=== PATIENT | male | born 1940 | race Two or more races ===

== ENCOUNTER 2024-03-05 05:30 | Inpatient (IN) | payer OTHER ==
[~2024-03-05] VITALS: Ht 160 cm; Wt 45.4 kg
[~2024-03-05 05:30] MED LIST: ACID CONTROL20 MG; DIOVAN40 MG; NORVASC10 MG; PROTONIX40 MG
[2024-03-05] MEDS ORDERED: NORVASC5 MG PO (05:34)
[2024-03-05] MEDS ORDERED: COZAAR100 MG PO (05:34)
[2024-03-05] MEDS ORDERED: FAMOTIDINE/PF 20 MG/2 ML VIAL IV PUSH STA (05:46)
[2024-03-05] MEDS ORDERED: 0.9 % SODIUM CHLORIDE 500 ML IV ONE (06:00)
[2024-03-05 06:46] LABS: HEMATOCRIT 34.3 % (39.0-48.0); MEAN CELL VOLUME 96.7 fL (80.0-100.00); MEAN CORPUSCULAR HEMOGLOBIN 33.6 pg (27.00-32.0); MEAN CORPUSCULAR HGB CONC 34.8 g/dl (32.0-36.0); PLATELET COUNT 253 K/uL (150-450); RED BLOOD COUNT 3.55 M/uL (4.00-6.00); RED CELL DISTRIBUTION WIDTH 13.5 % (11.5-14.5)
[2024-03-05 07:08] LABS: ALBUMIN 4.1 gm/dL (3.4-5.0); BILIRUBIN TOTAL 0.38 mg/dL (0.3-1.2); CALCIUM 9.3 mg/dL (8.5-10.1); CREATININE SERUM 1.51 mg/dL (0.70-1.30); GFR 44.35; GLOBULINA 3.4 G/DL (2.4-3.5); POTASSIUM 4.52 mEq/L (3.5-5.1); TOTAL PROTEIN 7.5 gm/dL (6.4-8.2)
[2024-03-05] MEDS ORDERED: ONDANSETRON HCL 2 MG/ML VIAL IV STA (08:10)
[2024-03-05] MEDS ORDERED: FAMOTIDINE/PF 20 MG/2 ML VIAL IV SCH (14:07)
[2024-03-05] MEDS ORDERED: ONDANSETRON HCL 4 MG in 0.9 % SODIUM CHLORIDE 50 ML IV PRN (14:15)
[2024-03-05] MEDS ORDERED: 0.9 % SODIUM CHLORIDE 1,000 ML IV SCH (14:15)
[2024-03-05] MEDS ORDERED: AMLODIPINE BESYLATE 5 MG TABLET PO SCH (14:20)
[2024-03-05] MEDS ORDERED: MORPHINE SULFATE 2 MG/ML CARTRIDGE IV PRN (14:30)
[2024-03-05] MEDS ORDERED: ACETAMINOPHEN 325 MG TABLET PO PRN (14:30)
[2024-03-05] MEDS ORDERED: INSULIN LISPRO 1,000 UNIT/10 ML UNITS SUBCUTANEO PRN (14:30)
[2024-03-05] MEDS ORDERED: DEXTROSE 50 % IN WATER 0.5 G/ML DISP.SYRIN IV PRN (14:30)
[2024-03-05] MEDS ORDERED: METRONIDAZOLE/SODIUM CHLORIDE 100 ML IV SCH (17:00)
[2024-03-05] MEDS ORDERED: LOSARTAN POTASSIUM 100 MG TABLET PO SCH (17:00)
[2024-03-05 17:40] LABS: URINE APPEARANCE Clear; URINE BILIRRUBIN Negative (NEGATIVE); URINE BLOOD Trace; URINE COLOR Yellow; URINE LEUKOCYTE Negative; URINE NITRATE Negative; URINE UROBILINOGEN 0.2 E.U./dl
[2024-03-05 17:40] LABS: INR 1.04; PARTIAL THROMBOPLASTIN TIME 23.6 SECONDS (22.0-34.0); PROTHROMBIN TIME 10.9 SECONDS (9.0-11.5)
[2024-03-05 17:43] LABS: URINE RBC 40.6 uL (0.0-20.8)
[2024-03-05 17:53] LABS: URINE BACTERIA 1.2 uL (0.0-1933); URINE EPITHELIAL CELLS 0.1 uL (0.0-38.8); URINE GLUCOSE 250 MG/DL (NEGATIVE); URINE PROTEIN 100 (NEGATIVE); URINE WBC 0.9 uL (0.0-23.2)
[2024-03-05 17:54] LABS: ALBUMIN 3.9 gm/dL (3.4-5.0); CALCIUM 8.3 mg/dL (8.5-10.1); CREATININE SERUM 1.12 mg/dL (0.70-1.30); GFR 62.61; PHOSPHOROUS 2.7 mg/dL (2.5-4.9); POTASSIUM 3.71 mEq/L (3.5-5.1)
[2024-03-05] MEDS ORDERED: CIPROFLOXACIN IN 5 % DEXTROSE 200 ML IV SCH (21:00)
[2024-03-06] MEDS ORDERED: AMINO ACIDS 4.25 %/DEXTROSE 5% 1,000 ML PERIFERAL SCH (17:00)
[2024-03-06 17:52] LABS: CALCIUM 8.6 mg/dL (8.5-10.1); CHOL HDL RATIO 1.6 (0-5.0); CREATININE SERUM 1.04 mg/dL (0.70-1.30); GFR 68.2; POTASSIUM 3.92 mEq/L (3.5-5.1)
[2024-03-07] MEDS ORDERED: DIATRIZOATE MEGLUMINE, SODIUM 30 ML BOTTLE PO NR (09:00)
[2024-03-07 11:27] LABS: BILIRUBIN TOTAL 0.76 mg/dL (0.3-1.2); BILIRUBIN,CONJUGATED 0.27 mg/dL (0.0-0.2); BILIRUBIN,UNCONJUGATED 0.49 mg/dL (0.0-0.6)
[2024-03-10 08:09] LABS: HEMATOCRIT 32.1 % (39.0-48.0); HEMOGLOBIN 11.5 g/dL (13-16.00); MEAN CELL VOLUME 93.1 fL (80.0-100.00); MEAN CORPUSCULAR HEMOGLOBIN 33.3 pg (27.00-32.0); MEAN CORPUSCULAR HGB CONC 35.7 g/dl (32.0-36.0); PLATELET COUNT 196 K/uL (150-450); RED BLOOD COUNT 3.45 M/uL (4.00-6.00); RED CELL DISTRIBUTION WIDTH 12.8 % (11.5-14.5)
[2024-03-10 08:33] LABS: INR 1.04; PARTIAL THROMBOPLASTIN TIME 25.4 SECONDS (22.0-34.0); PROTHROMBIN TIME 10.9 SECONDS (9.0-11.5)
[2024-03-10 08:38] LABS: ALBUMIN 2.9 gm/dL (3.4-5.0); BILIRUBIN TOTAL 0.39 mg/dL (0.3-1.2); BILIRUBIN,CONJUGATED 0.14 mg/dL (0.0-0.2); BILIRUBIN,UNCONJUGATED 0.25 mg/dL (0.0-0.6); CALCIUM 8.3 mg/dL (8.5-10.1); CHOL HDL RATIO 1.5 (0-5.0); CREATININE SERUM 0.84 mg/dL (0.70-1.30); GFR 87.27; GLOBULINA 2.8 G/DL (2.4-3.5); MAGNESIUM 1.6 mg/dL (1.8-2.4); TOTAL PROTEIN 5.7 gm/dL (6.4-8.2)
[2024-03-10 09:11] LABS: POTASSIUM 2.67 mEq/L (3.5-5.1)
[2024-03-10] MEDS ORDERED: MAGNESIUM SULFATE IN WATER 2 GM/50 ML PIGGYBAG IV NR (10:15)
[2024-03-10] MEDS ORDERED: MIDAZOLAM HCL 2 MG/2 ML VIAL IV STA (12:15)
[2024-03-10] MEDS ORDERED: POTASSIUM CHLORIDE IN WATER 40 MEQ/100 ML PIGGYBAG IV SCH (17:00)
[2024-03-11 07:58] LABS: UREA CLEARANCE 24.7 ML/MIN
[2024-03-11 08:58] LABS: CALCIUM 7.8 mg/dL (8.5-10.1); CREATININE SERUM 0.89 mg/dL (0.70-1.30); GFR 81.63; MAGNESIUM 2.2 mg/dL (1.8-2.4)
[2024-03-11 09:30] LABS: POTASSIUM 2.95 mEq/L (3.5-5.1)
[2024-03-11] MEDS ORDERED: POTASSIUM CHLORIDE 10 MEQ CAPSULE PO SCH ×2 (12:00→18:00)
[2024-03-11] MEDS ORDERED: POTASSIUM CHLORIDE IN WATER 40 MEQ/100 ML PIGGYBAG IV SCH (12:00)
[2024-03-12 08:12] LABS: CALCIUM 8.4 mg/dL (8.5-10.1); CREATININE SERUM 0.98 mg/dL (0.70-1.30); GFR 73.04; POTASSIUM 3.06 mEq/L (3.5-5.1)
[2024-03-12] MEDS ORDERED: POTASSIUM CHLORIDE 10 MEQ CAPSULE PO SCH (09:59)
== END 2024-03-12 14:50 | disposition home or self-care (01) | DRG 389 ==
LOC: ER 05:30 → SEC-K 16:39 → SURH 03-06 23:08
PROVIDERS: General Practice; Internal Medicine; ADMIT Internal Medicine; ATTEND Internal Medicine
PROC: BW21ZZZ Computerized Tomography (CT Scan) of Abdomen and Pelvis (ICD-10-PCS; 2024-03-05)
PROC: BW21YZZ Computerized Tomography (CT Scan) of Abdomen and Pelvis using Other Contrast (ICD-10-PCS; 2024-03-07)
PROC: 0DJ08ZZ Inspection of Upper Intestinal Tract, Via Natural or Artificial Opening Endoscopic (ICD-10-PCS; principal; 2024-03-10)
DX: K56.609 Unspecified intestinal obstruction, unspecified as to partial versus complete obstruction (principal); N17.9 Acute kidney failure, unspecified; E86.0 Dehydration; E87.6 Hypokalemia; I10 Essential (primary) hypertension

== ENCOUNTER 2024-07-26 02:10 | Inpatient (IN) | payer OTHER ==
[~2024-07-26] VITALS: Ht 160 cm; Wt 45.4 kg
[~2024-07-26 02:10] MED LIST changes: +COZAAR100 MG PO; +NORVASC5 MG PO
--- NOTE | 2024-07-26 02:29 | NUR ---
PTE ALERTA Y ORIENTADO X3 REFIERE DOLOR ABDOMINAL Y VOMITO DESDE HACE 3 HRS.
[2024-07-26] MEDS ORDERED: 0.9 % SODIUM CHLORIDE 1,000 ML IV STA (04:44)
[2024-07-26] MEDS ORDERED: HYOSCYAMINE SULFATE 0.125 MG TAB.SUBL SL ONE (04:45)
[2024-07-26] MEDS ORDERED: ONDANSETRON HCL 2 MG/ML VIAL IV STA (04:45)
[2024-07-26] MEDS ORDERED: METOCLOPRAMIDE HCL 5 MG/ML VIAL IM STA (04:45)
[2024-07-26] MEDS ORDERED: FAMOtidine 10 MG/ML (4ML VIAL) IV PUSH STA (04:46)
--- NOTE | 2024-07-26 04:50 | NUR ---
PTE ALERTA Y ORIENTADO X3. SE ADMINISTRA MEDICAMENTO TERESA ORDEN MEDICA Y BAJO MEDIDAS ASEPTICAS. NO SE OBSERVA REACCION ADVERSA AL MOMENTO.
--- NOTE | 2024-07-26 08:45 | NUR ---
AL MOMENTO DE JAZZY PACIENTE REFIERE QUE NO DESEA IRSE PORQUE CONTINUA CON VOMITOS SE NOTIFICA A MD DE SOUZAO
[2024-07-26 09:54] LABS: HEMATOCRIT 34.3 % (39.0-48.0); HEMOGLOBIN 12.2 g/dL (13-16.00); MEAN CELL VOLUME 94.5 fL (80.0-100.00); MEAN CORPUSCULAR HEMOGLOBIN 33.5 pg (27.00-32.0); MEAN CORPUSCULAR HGB CONC 35.5 g/dl (32.0-36.0); PLATELET COUNT 230 K/uL (150-450); RED BLOOD COUNT 3.63 M/uL (4.00-6.00); RED CELL DISTRIBUTION WIDTH 13.3 % (11.5-14.5)
[2024-07-26 10:18] LABS: ALBUMIN 4.2 gm/dL (3.4-5.0); BILIRUBIN TOTAL 0.32 mg/dL (0.3-1.2); CALCIUM 9.4 mg/dL (8.5-10.1); CREATININE SERUM 1.42 mg/dL (0.70-1.30); GFR 47.61; POTASSIUM 4.94 mEq/L (3.5-5.1); TOTAL PROTEIN 8.2 gm/dL (6.4-8.2)
[2024-07-26] MEDS ORDERED: PANTOPRAZOLE SODIUM 40 MG/VIAL VIAL IV ONE (13:30)
[2024-07-26] MEDS ORDERED: 0.9 % SODIUM CHLORIDE 1,000 ML IV SCH (13:30)
[2024-07-26] MEDS ORDERED: LOSARTAN POTASSIUM 100 MG TABLET PO SCH (17:14)
[2024-07-26] MEDS ORDERED: PANTOPRAZOLE SODIUM 40 MG in 0.9 % SODIUM CHLORIDE 8 ML IV PUSH SCH (17:14)
[2024-07-26] MEDS ORDERED: AMLODIPINE BESYLATE 5 MG TABLET PO SCH (17:14)
[2024-07-26] MEDS ORDERED: ONDANSETRON HCL 4 MG in 0.9 % SODIUM CHLORIDE 50 ML IV PRN (17:15)
[2024-07-26] MEDS ORDERED: INSULIN LISPRO 1,000 UNIT/10 ML UNITS SUBCUTANEO PRN (17:30)
[2024-07-26] MEDS ORDERED: DEXTROSE 50 % IN WATER 0.5 G/ML DISP.SYRIN IV PRN (17:30)
[2024-07-26] MEDS ORDERED: PIPERACILLIN/TAZOBACTAM SODIUM 3.375 GM in 0.9 % SODIUM CHLORIDE 100 ML IV SCH (18:00)
[2024-07-26 19:37] LABS: ALBUMIN 3.8 gm/dL (3.4-5.0); CALCIUM 8.7 mg/dL (8.5-10.1); CREATININE SERUM 1.27 mg/dL (0.70-1.30); GFR 54.16; PHOSPHOROUS 2.9 mg/dL (2.5-4.9); POTASSIUM 4.39 mEq/L (3.5-5.1)
[2024-07-26] MEDS ORDERED: MORPHINE SULFATE 4 MG/ML VIAL IV PRN (20:00)
[2024-07-26 22:23] VITALS: BP 120/66
[2024-07-27 02:39] VITALS: BP 138/77; O2SAT 95
[2024-07-27] MEDS ORDERED: MORPHINE SULFATE 4 MG/ML CARTRIDGE IV PRN (07:45)
[2024-07-27 08:58] VITALS: BP 149/75; O2SAT 96
[2024-07-27 17:32] VITALS: BP 137/71
[2024-07-28 02:28] VITALS: BP 131/76; O2SAT 96
[2024-07-28 08:15] VITALS: BP 161/77
[2024-07-28 16:40] VITALS: BP 162/85; O2SAT 97
[2024-07-28 19:47] LABS: INR 0.95; PARTIAL THROMBOPLASTIN TIME 22.5 SECONDS (22.0-34.0); PROTHROMBIN TIME 10.4 SECONDS (9.0-11.5)
[2024-07-28 20:00] VITALS: BP 154/82; O2SAT 99
[2024-07-28] MEDS ORDERED: hydrALAZINE HCL 20 MG VIAL IV PRN (23:15)
[2024-07-29 02:19] VITALS: BP 136/72; O2SAT 98
[2024-07-29 09:37] VITALS: BP 134/72; O2SAT 99
[2024-07-29] MEDS ORDERED: MIDAZOLAM HCL 2 MG/2 ML VIAL IV STA (11:14)
[2024-07-29 15:32] LABS: HEMATOCRIT 33.8 % (39.0-48.0); HEMOGLOBIN 11.9 g/dL (13-16.00); MEAN CELL VOLUME 95.2 fL (80.0-100.00); MEAN CORPUSCULAR HEMOGLOBIN 33.4 pg (27.00-32.0); MEAN CORPUSCULAR HGB CONC 35.1 g/dl (32.0-36.0); PLATELET COUNT 225 K/uL (150-450); RED BLOOD COUNT 3.55 M/uL (4.00-6.00); RED CELL DISTRIBUTION WIDTH 13.3 % (11.5-14.5)
[2024-07-29 15:51] LABS: ALBUMIN 3.7 gm/dL (3.4-5.0); BILIRUBIN TOTAL 0.68 mg/dL (0.3-1.2); CREATININE SERUM 1.43 mg/dL (0.70-1.30); GFR 47.23; GLOBULINA 3.3 G/DL (2.4-3.5); MAGNESIUM 2.3 mg/dL (1.8-2.4); POTASSIUM 4.94 mEq/L (3.5-5.1)
[2024-07-29 16:45] VITALS: BP 135/94; O2SAT 97
[2024-07-30 03:11] VITALS: BP 106/62; O2SAT 97
[2024-07-30 08:47] VITALS: BP 141/70; O2SAT 97
[2024-07-30 16:34] VITALS: BP 144/70
[2024-07-31 01:11] VITALS: BP 128/69; O2SAT 98
[2024-07-31 06:32] LABS: HEMATOCRIT 32.7 % (39.0-48.0); HEMOGLOBIN 11.7 g/dL (13-16.00); MEAN CELL VOLUME 93.8 fL (80.0-100.00); MEAN CORPUSCULAR HEMOGLOBIN 33.6 pg (27.00-32.0); MEAN CORPUSCULAR HGB CONC 35.8 g/dl (32.0-36.0); PLATELET COUNT 212 K/uL (150-450); RED BLOOD COUNT 3.48 M/uL (4.00-6.00); RED CELL DISTRIBUTION WIDTH 13.1 % (11.5-14.5)
[2024-07-31 07:19] LABS: ALBUMIN 3.7 gm/dL (3.4-5.0); BILIRUBIN TOTAL 0.69 mg/dL (0.3-1.2); CALCIUM 8.9 mg/dL (8.5-10.1); CREATININE SERUM 1.38 mg/dL (0.70-1.30); GFR 49.21; GLOBULINA 3.3 G/DL (2.4-3.5); MAGNESIUM 2.2 mg/dL (1.8-2.4); PHOSPHOROUS 2.1 mg/dL (2.5-4.9); POTASSIUM 3.97 mEq/L (3.5-5.1)
[2024-07-31 09:57] VITALS: BP 129/65; O2SAT 97
[2024-07-31 16:40] VITALS: BP 131/80; O2SAT 97
== END 2024-07-31 19:56 | disposition home or self-care (01) | DRG 381 ==
LOC: ER 02:10 → MEDI 17:45
PROVIDERS: General Practice; ADMIT Internal Medicine; ATTEND Internal Medicine
PROC: BW21YZZ Computerized Tomography (CT Scan) of Abdomen and Pelvis using Other Contrast (ICD-10-PCS; 2024-07-26)
PROC: BW21YZZ Computerized Tomography (CT Scan) of Abdomen and Pelvis using Other Contrast (ICD-10-PCS; 2024-07-27)
PROC: 0DJ08ZZ Inspection of Upper Intestinal Tract, Via Natural or Artificial Opening Endoscopic (ICD-10-PCS; principal; 2024-07-29)
DX: K31.5 Obstruction of duodenum (principal); I77.4 Celiac artery compression syndrome; K90.49 Malabsorption due to intolerance, not elsewhere classified; E86.0 Dehydration; I10 Essential (primary) hypertension; E11.9 Type 2 diabetes mellitus without complications; Z79.4 Long term (current) use of insulin

== ENCOUNTER 2024-09-07 01:11 | Inpatient (IN) | payer OTHER ==
[~2024-09-07] VITALS: Ht 160 cm; Wt 45.4 kg
--- NOTE | 2024-09-07 01:32 | NUR ---
SE RECIBE PTE ALERTA ORIENTADO X3 EN AMBULANCIA EN COMPANIA DE PARAMEDICOS.PTE REFIERE TENER DOLOR ABDOMINAL,NAUSEAS Y VOMITOS DESDE EL KEYANA DE IRASEMA.SE VIANEY S/V Y SE UBICA.
[2024-09-07] MEDS ORDERED: 0.9 % SODIUM CHLORIDE 1,000 ML IV STA (04:30)
[2024-09-07] MEDS ORDERED: FAMOtidine 10 MG/ML (4ML VIAL) IV PUSH STA (04:31)
[2024-09-07] MEDS ORDERED: ONDANSETRON HCL 2 MG/ML VIAL IV STA (04:31)
[2024-09-07] MEDS ORDERED: HYOSCYAMINE SULFATE 0.125 MG TAB.SUBL SL STA (04:32)
[2024-09-07] MEDS ORDERED: LIDOCAINE HCL VISCOUS 20MG/ML BLIST 15ML MM ONE (04:36)
[2024-09-07 05:54] LABS: PARTIAL THROMBOPLASTIN TIME 20.4 SECONDS (22.0-34.0); PROTHROMBIN TIME 10.9 SECONDS (9.0-11.5)
[2024-09-07 05:58] LABS: ALBUMIN 4.4 gm/dL (3.4-5.0); BILIRUBIN TOTAL 0.41 mg/dL (0.3-1.2); CALCIUM 9.9 mg/dL (8.5-10.1); CREATININE SERUM 1.4 mg/dL (0.70-1.30); GFR 48.4; GLOBULINA 4.2 G/DL (2.4-3.5); POTASSIUM 4.52 mEq/L (3.5-5.1); TOTAL PROTEIN 8.6 gm/dL (6.4-8.2)
[2024-09-07 06:12] LABS: HEMATOCRIT 36.1 % (39.0-48.0); HEMOGLOBIN 12.7 g/dL (13-16.00); MEAN CELL VOLUME 94.1 fL (80.0-100.00); MEAN CORPUSCULAR HEMOGLOBIN 33.1 pg (27.00-32.0); MEAN CORPUSCULAR HGB CONC 35.2 g/dl (32.0-36.0); PLATELET COUNT 266 K/uL (150-450); RED BLOOD COUNT 3.84 M/uL (4.00-6.00); RED CELL DISTRIBUTION WIDTH 13.6 % (11.5-14.5)
[2024-09-07] MEDS ORDERED: MORPHINE SULFATE 4 MG/ML CARTRIDGE IV PRN (17:15)
[2024-09-07] MEDS ORDERED: hydrALAZINE HCL 20 MG VIAL IV PRN (17:15)
[2024-09-07] MEDS ORDERED: ONDANSETRON HCL 4 MG in 0.9 % SODIUM CHLORIDE 50 ML IV PRN (17:15)
[2024-09-07] MEDS ORDERED: 0.9 % SODIUM CHLORIDE 1,000 ML IV SCH (17:15)
[2024-09-07] MEDS ORDERED: FAMOTIDINE/PF 20 MG in 0.9 % SODIUM CHLORIDE 8 ML IV PUSH SCH (17:19)
[2024-09-07] MEDS ORDERED: DEXTROSE 50 % IN WATER 0.5 G/ML DISP.SYRIN IV PRN (17:30)
[2024-09-07] MEDS ORDERED: INSULIN LISPRO 1,000 UNIT/10 ML UNITS SUBCUTANEO PRN (17:30)
[2024-09-07] MEDS ORDERED: PIPERACILLIN/TAZOBACTAM SODIUM 3.375 GM in 0.9 % SODIUM CHLORIDE 100 ML IV SCH (18:00)
[2024-09-07 19:34] LABS: PH,URINE 8.5 (5.0-8.0); URINE APPEARANCE Clear; URINE BILIRRUBIN Negative (NEGATIVE); URINE BLOOD Negative; URINE COLOR Yellow; URINE KETONE Trace (NEGATIVE); URINE LEUKOCYTE Negative; URINE NITRATE Negative; URINE UROBILINOGEN 0.2 E.U./dl
[2024-09-07 19:39] LABS: URINE BACTERIA 15.8 uL (0.0-1933); URINE RBC 22.9 uL (0.0-20.8)
[2024-09-07 19:45] LABS: URINE CAST 0.14 uL (0.0-1.40); URINE EPITHELIAL CELLS 0.6 uL (0.0-38.8); URINE GLUCOSE 250 MG/DL (NEGATIVE); URINE PROTEIN 100 (NEGATIVE); URINE WBC 1.4 uL (0.0-23.2)
[2024-09-07 19:52] LABS: ALBUMIN 3.8 gm/dL (3.4-5.0); CALCIUM 9.2 mg/dL (8.5-10.1); CREATININE SERUM 1.26 mg/dL (0.70-1.30); GFR 54.66; PHOSPHOROUS 2.8 mg/dL (2.5-4.9); POTASSIUM 4.22 mEq/L (3.5-5.1)
[2024-09-08 05:16] VITALS: BP 144/67; O2SAT 99
[2024-09-08 08:09] VITALS: BP 108/69; O2SAT 96
[2024-09-08 16:55] VITALS: BP 154/65; O2SAT 99
[2024-09-09] VITALS: BP 151/69; O2SAT 98
[2024-09-09 08:00] VITALS: BP 156/67; O2SAT 99
[2024-09-09 19:59] VITALS: BP 160/71; O2SAT 99
[2024-09-10 00:30] VITALS: BP 134/70; O2SAT 96
[2024-09-10 08:22] VITALS: BP 131/67; O2SAT 97
[2024-09-10 19:53] VITALS: BP 149/68; O2SAT 99
[2024-09-11 01:33] VITALS: BP 132/68; O2SAT 100
[2024-09-11] MEDS ORDERED: PIPERACILLIN/TAZOBACTAM SODIUM 3.375 GM VIAL IV ONE (07:40)
[2024-09-11 08:16] VITALS: BP 162/78; O2SAT 100
[2024-09-11 11:27] LABS: HEMATOCRIT 36.3 % (39.0-48.0); HEMOGLOBIN 12.5 g/dL (13-16.00); MEAN CORPUSCULAR HEMOGLOBIN 33.1 pg (27.00-32.0); MEAN CORPUSCULAR HGB CONC 34.5 g/dl (32.0-36.0); PLATELET COUNT 232 K/uL (150-450); RED BLOOD COUNT 3.78 M/uL (4.00-6.00)
[2024-09-11 12:08] LABS: ALBUMIN 3.2 gm/dL (3.4-5.0); BILIRUBIN TOTAL 0.8 mg/dL (0.3-1.2); CALCIUM 8.9 mg/dL (8.5-10.1); CREATININE SERUM 1.21 mg/dL (0.70-1.30); GFR 57.27; GLOBULINA 3.9 G/DL (2.4-3.5); POTASSIUM 4.28 mEq/L (3.5-5.1); TOTAL PROTEIN 7.1 gm/dL (6.4-8.2)
[2024-09-11 16:00] VITALS: BP 142/65; O2SAT 99
[2024-09-12] VITALS: BP 145/62; O2SAT 99
[2024-09-12 08:00] VITALS: BP 80/50; O2SAT 96
== END 2024-09-12 17:01 | disposition home or self-care (01) | DRG 382 ==
LOC: ER 01:11 → SURH 17:59
PROVIDERS: General Practice; ADMIT Internal Medicine; ATTEND Internal Medicine
PROC: BW21ZZZ Computerized Tomography (CT Scan) of Abdomen and Pelvis (ICD-10-PCS; principal; 2024-09-07)
PROC: BW20YZZ Computerized Tomography (CT Scan) of Abdomen using Other Contrast (ICD-10-PCS; 2024-09-09)
DX: K31.5 Obstruction of duodenum (principal); I10 Essential (primary) hypertension; E11.9 Type 2 diabetes mellitus without complications; Z79.4 Long term (current) use of insulin; K59.00 Constipation, unspecified
CPT/HCPCS: 74175